=== PATIENT | female | born 1980 | race Two or more races ===

== ENCOUNTER 2024-11-15 08:35 | Day surgery (SDC) | payer MEDICAID, SELFPAY ==
--- NOTE | 2024-11-11 08:37 | ESHP_ITS ---
RE: CLAYTON STOVER : 1980 DATE OF ADMISSION: 11/08/2024 DATE OF SURGERY: 11/12/2024 HISTORY OF PRESENT ILLNESS: This 44-year-old female was seen because of swelling above the umbilicus. The patient has noticed this recently and was evaluated by a family physician with an ultrasound and was told that she had some mass above the umbilicus. The patient does not have much pain, but is working in the [employer] and whenever she is lifting something heavy, she is experiencing considerable discomfort. PAST MEDICAL HISTORY: Essentially unremarkable. PAST SURGICAL HISTORY: section in 2009. PHYSICAL EXAMINATION: VITAL SIGNS: Temperature was 98.9, pulse was 65, BP was 110/72. GENERAL: Pleasant, healthy 44-year-old female who only speaks Azeri. She is 5 feet 3 inches tall and weighs 152 pounds with a BMI of 26.9. HEENT: Head normal. Eyes, ears, nose, throat normal. NECK: Normal. CHEST: Revealed good breath sounds on both sides. HEART: Sinus rhythm with no murmurs. ABDOMEN: Showed supraumbilical palpable mass, which shows herniation of the intraabdominal fatty tissue, probably omentum. IMPRESSION: 1. Ventral hernia without obstruction. 2. Chronic constipation. COURSE OF ACTION: I advised the patient to undergo repair of this hernia.most likely mesh will be used and the procedure will be done under general anesthesia. She is agreeable. DT: 14:01:42 TT: 15:24:00 Ref: [id number] - TID: [id number] [facility]
[2024-11-13 08:19] VITALS: BMI 26.4
[2024-11-13 10:39] LABS: Basophils # (Auto) 0.1 Thou/mm3 (0.0-0.2); Basophils % (Auto) 1 % (0-2.5); Eosinophils # (Auto) 0.2 Thou/mm3 (0.0-0.5); Eosinophils % (Auto) 1 % (0-10); Hematocrit 42.4 % (36.0-46.0); Hemoglobin 14.6 g/dL (12.0-16.0); Immature Granulocytes % (Auto) 1 % (0-0); Immature Granulocytes Auto 0.14 Thou/mm3 (0.00-0.00); Lymphocytes # (Auto) 2.7 Thou/mm3 (1.0-4.8); Lymphocytes % (Auto) 24 % (10-50); Mean Corpuscular HGB Conc 34.4 g/dl (31.0-37.0); Mean Corpuscular Hemoglobin 30.2 pg (25.0-35.0); Mean Corpuscular Volume 88 fL (80-100); Monocytes % (Auto) 9 % (0-12); Neutrophils # (Auto) 7.4 Thou/mm3 (1.8-7.7); Neutrophils % (Auto) 64 % (37-80); Nucleated Red Blood Cell % 0 /100 WBC (0); Platelet Count 414 Thou/mm3 (140-440); RDW Standard Deviation 42.9 fL (36.4-46.3); Red Blood Count 4.84 Miln/mm3 (4.00-5.20); White Blood Count 11.5 Thou/mm3 (3.6-11.0)
[2024-11-13 10:58] LABS: Alanine Aminotransferase 49 U/L (10-49); Albumin, Serum 4.3 gm/dL (3.5-5.0); Albumin/Globulin Ratio 1.5 (1.2-2.2); Alkaline Phosphatase 108 U/L (46-116); Anion Gap 12 (7-16); Aspartate Amino Transferase 28 U/L (0-34); BUN/Creatinine Ratio 14 Ratio (12-20); Bilirubin,Total 0.6 mg/dL (0.3-1.2); Blood Urea Nitrogen 11 mg/dL (9-23); Calcium 8.9 mg/dL (8.3-10.6); Calcium (Corrected) 8.9 mg/dL (8.5-10.1); Carbon Dioxide 20.6 mMol/L (20.0-31.0); Chloride 108 mMol/L (98-107); Creatinine (Component) 0.8 mg/dL (0.6-1.3); Estimated Creatinine Clearance 82.9 mL/min (>60); Globulin 2.9 gm/dL (2.3-3.5); Glucose 98 mg/dL (74-106); Osmolality,Calculated 280 (275-295); Potassium 3.4 mMol/L (3.4-5.1); Sodium 141 mMol/L (136-145); Total Protein 7.2 gm/dL (5.7-8.2); eGFR > 60 See Note
[2024-11-13 11:03] LABS: Partial Thromboplastin Time 27.6 Seconds (22.0-36.0); Prothrombin Time 10.8 Seconds (9.0-12.2)
[2024-11-13 11:04] LABS: HCG,Qualitative Serum Negative
[2024-11-15] VITALS (10 sets, daily range): BP systolic 110–120; BP diastolic 60–77; PULSE 73–101; RESP 16–20; TEMP 36.6–36.9; O2SAT 95–100; BMI 26.1
--- NOTE | 2024-11-15 09:24 | SUR.PREOP ---
Patient expressed gratitude for prayer before their procedure.
--- NOTE | 2024-11-15 10:22 | SUR.PREOP ---
Occasional wet cough noticed. States she has completed her course of Amoxicillin. States the Amoxicillin did help but cough and white phlegm not going away. Dr. Rose made aware that patient will be tested for COVID. Awaiting results.
[2024-11-15 10:40] LABS: COVID-19 Antigen (In-House) Negative (Negative)
--- NOTE | 2024-11-15 13:17 | SUR.PHASEI ---
1317 Patient arrived to recovery resting comfortably in [facility] on oxygen 8L via oxy mask, drowsy and able to arouse with verbal promptnig, breathing unlabored, vital signs stable, denies pain, dressing intact; no bleeding noted, report received Dr. Rose and Cory BURGOS
--- NOTE | 2024-11-15 14:30 | ESOP_ITS ---
Date of Procedure 11/15/24 Pre Op Diagnosis Symptomatic ventral hernia Post Op Diagnosis Same Procedure Repair of the symptomatic ventral hernia with 1.[address] mesh Findings Patient was found to have mass the above the umbilicus and it was size of a golf ball mostly containing the preperitoneal fat Procedure Description After the patient was brought to the operating room endotracheal anesthesia was performed. Abdomen was prepped with ChloraPrep solution and draped in sterile manner. Timeout was performed. Then I made a vertical incision for about 5 cm in length above the umbilicus and dissected the subcutaneous tissue. Patient was found to have herniation of the preperitoneal fat through this defect which measured about 2.5 cm in length. I used a Loja clamp and divided the tissue and suture-ligated with 2-0 chromic. Then I cleaned the undersurface of the fascia which was very thinned out. Even though the defect was not very large the fascial layer was very thin and therefore I feared for recurrence. I placed 1.7 inch Ventralex mesh and attached the Marlex straps to the edges using 2-0 Prolene. Then I placed 2 Prolene sutures opposite of the Marlex mesh to anchor the mesh to the anterior abdominal wall. Subcutaneous tissue was closed with 3- 0 plain and the skin was approximated with 4-0 Monocryl and 4 x 4 dressing was applied. Patient tolerated procedure well Anesthesia GET[employer] Implants 1.7 inch Ventralex mesh Pathology / specimen None Estimated Blood Loss 20 Surgeon Yane Grijalva MD Surgical Staff Operation Date: 11/15/24 11:00 Case Staff Anesthesiologist: Sabino Rose RN First Assistant: Brandi Reyes
--- NOTE | 2024-11-15 15:00 | SUR.PHASEII ---
1500 Patient meets discharge criteria from recovery, awake and alert, breathing unlabored, vital signs stable, denies pain, dressing intact; no bleeding noted, patient voided in the restroom prior to discharge, patient drinking fluids; denies nausea, patient assisted with dressing into her clothing by her daughter, discharge instruction given to patient and her daughter with the assistance of the hospital spanish interpreter/translator Mary, patients daughter signed discharge instructions. Patient given all her belongings prior to discharge, transported via wheelchair and left in a private vehicle.
== END 2024-11-15 15:00 | disposition home or self-care (01) ==
PROVIDERS: Anesthesiology; PCP Family Medicine; Referring Provider Surgery; Visit Provider Surgery
PROC: (CPT 49591; principal; 2024-11-15 10:45)
DX: K43.9 Ventral hernia without obstruction or gangrene (principal)
CPT/HCPCS: 49591; 36415; 80053; 84703; 85025; 85610; 85730; 87811; A4217; A4649; C1781; J0131; J1100; J2250; J2405; J3010; J3490; A9270